=== PATIENT | female | born 2000 | race Caucasian/White ===

== ENCOUNTER 2024-07-06 06:20 | Emergency (ER) | payer SELFPAY ==
[~2024-07-06] VITALS: Ht 177.8 cm; Wt 114.0 kg
[2024-07-06] MEDS ORDERED: SODIUM CHLORIDE 0.9% 1,000 ML IV ONE (06:55)
[2024-07-06 07:03] VITALS: BP 123/73
[2024-07-06 07:25] LABS: BASO% 0.8 % (0-3); EOS% 1.4 % (0-8); HEMATOCRIT 37.8 % (37.0-47.0); HEMOGLOBIN 12.5 g/dl (12.0-16.0); IMMATURE GRANULOCYTES 0.6 % (0.0-5.0); LYMPH% 24.8 % (15-41); MEAN CELL VOLUME 82.2 fL CALC (80.0-100.0); MEAN CORPUSCULAR HGB 27.2 pG CALC (26.0-32.0); MEAN CORPUSCULAR HGB CONC 33.1 g/dL CAL (32.0-36.0); MONO% 6.4 % (2-13); NEUT# 3.18 thou/uL (2.00-7.15); RED BLOOD COUNT 4.6 mill/uL (4.20-5.60); RED CELL DISTRI WIDTH 13.3 % (11.5-15.5)
[2024-07-06 07:28] VITALS: BP 118/62
[2024-07-06 07:30] VITALS: BP 106/66
[2024-07-06 07:38] LABS: ALBUMIN 4.7 g/dL (3.2-5.0); BILIRUBIN, TOTAL 0.7 mg/dL (0.02-1.3); CREATININE 0.7 mg/dL (0.5-1.0); POTASSIUM 3.5 mmol/l (3.5-5.1); TOTAL PROTEIN 8.1 g/dL (6.3-8.2)
[2024-07-06 07:46] VITALS: BP 103/70
[2024-07-06 08:59] VITALS: BP 103/70
== END 2024-07-06 10:12 | disposition home or self-care (01) | DRG 833 ==
LOC: ED 06:20
PROVIDERS: Family Medicine
DX: O20.9 Hemorrhage in early pregnancy, unspecified (principal); Z3A.00 Weeks of gestation of pregnancy not specified